=== PATIENT | male | born 1970 | race Caucasian/White ===

== ENCOUNTER 2025-05-05 15:28 | Outpatient (AMB) | payer OTHER, SELFPAY ==
--- NOTE | 2025-05-05 15:31 | MHC.PC.OV ---
Vital Signs 05/05/25 15:34 Height 5 ft 10.08 in Weight 207 lb BMI 29.6 BP 158/84 H Blood Pressure Location Rt brachial Position Sitting Respiration 14 Pulse 62 Pulse Source Pulse Oximeter Temp 97.7 F Temp Source Temporal Artery Scan Pulse Oximetry (%) 97 Oxygen Delivery Method Room Air Intake Visit Reasons: Office visit, New patient - see comments Medical Services Manager Required: No Accompanied by: Self / Same As Patient Allergies No Known Allergies (No Known Allergies*) Allergy (Unverified 05/05/25 15:32) Tobacco use date assessed: 05/05/25 Dental Screening Dental Screen Date: 05/05/25 Did you have a dental visit in the last 12 months?: Yes Did you have a dental problem in the last 6 months where you did not have access to dental care?: No Was dental information given to patient?: Patient has dentist HPI HPI Comments History of Present Illness Details History of Present Illness - The patient is a 54 year old individual presenting to [facility] care and for evaluation of urinary symptoms. - The patient reports that for the last 4-5 months, the patient's urine has been foamy and has had a strong ammonia-like odor. - The patient has not had health insurance for approximately 3 years and has not had recent lab work. - The patient's maintenance medications, which have been taken for about 20 years, include metoprolol 100 mg, trazodone for sleep, and an inhaler. - The patient also reports a recent episode of erectile dysfunction during a stressful situation and requests a prescription for Viagra 100 mg, noting the last prescription was filled about 3 years ago. - The patient reports daily alcohol consumption, has a history of heavy drinking, and has previously attended rehabilitation. - The patient also smokes 6-7 cigarettes daily, which is a reduction from a previous habit of 1.5 packs per day. - For health maintenance, the patient's last colon cancer screening was a Cologuard test at age 41 and has declined flu shots. - The patient reports significant life stress after moving from [place] to care for an ill mother. Social History - Alcohol Use: The patient reports drinking alcohol daily, typically a couple of drinks after getting home from work. - The patient occasionally drinks in the morning on days off and sometimes drinks alone. - The patient reports having been a very heavy drinker in the past but has cut down significantly and has a history of attending rehab. - Tobacco Use: The patient currently smokes 6-7 cigarettes per day, having cut back from a pack and a half per day over the last two years. - Employment: The patient works in a factory making - Housing and Family: The patient recently relocated from [place] to care for an ill mother and is currently living with her, which is a significant source of stress. - Exercise: The patient reports being physically active at work all day but does not engage in dedicated exercise. Results - No diagnostic results were reviewed during the visit. [facility] Medical History (Updated 05/05/25 @ 16:07 by Daniel Reynolds MD) Hyperlipidemia Family History (Updated 05/05/25 @ 15:43 by ROMAN Lehman) Father No problems noted. Mother No problems noted. Social History (Updated 05/05/25 @ 15:44 by ROMAN Lehman) Housing: House Alcohol intake: current Alcohol intake frequency: 0-2 drinks per day Patient Tobacco Use Status: Current everyday Tobacco user Cigarettes Per Day: 8 service: No Current occupational status: employed Cognitive needs: No Hearing needs: No Vision needs: Yes (reading glasses) Questionnaire PHQ-9 Over the last 2 weeks, how often have you been bothered by any of the following problems? 1. Little interest or pleasure in doing things: not at all 2. Feeling down, depressed, or hopeless: not at all 3. Trouble falling or staying asleep, or sleeping too much: not at all 4. Feeling tired or having little energy: not at all 5. Poor appetite or overeating: not at all 6. Feeling bad about yourself - or that you are a failure or have let yourself or your family down: not at all 7. Trouble concentrating on things, such as reading the newspaper or watching television: not at all 8. Moving or speaking so slowly that other people could have noticed. Or the opposite - being so fidgety or restless that you have been moving around a lot more than usual: not at all 9. Thoughts that you would be better off or of hurting yourself in some way: not at all Total score: 0 Source: Developed by Drs. Darshan Turner, Tahmina Muir, New Aviles and colleagues, with an educational jer from [employer]. Thrive Questionnaire Date Thrive assessed: 05/05/25 I am a: Patient What is your living situation today?: I have a steady place to live Within the past 12 months, did the food you bought not last and you didn't have the money to get more?: Never true Within the past 12 months, did you worry whether your food would run out before you got money to buy more?: Never true Do you have trouble paying for medicines?: No Do you have trouble getting transportation to medical appointments?: No Do you have trouble paying your heating and electricity bill?: No Do you have trouble taking care of your child, family member or friend?: No Do you have trouble with day-to-day activities such as bathing, preparing meals, shopping, managing finances, etc.?: No Are you currently unemployed and looking for a job?: No Are you interested in more education?: No Please select the resources that you would like help with: None THRIVE Score: 0 AUDIT C Alcohol Use Questionnaire (AUDIT-C) 1. How often do you have a drink containing alcohol?: 4 or more times a week 2. How many drinks containing alcohol do you have on a typical day when you are drinking?: 1 or 2 3. How often do you have six or more drinks on one occasion?: Never Total Score: 4 BLAINE-7 AMB Questionnaire BLAINE-7 Date BLAINE - 7 assessed: 05/05/25 Feeling nervous, anxious, or on edge: 0 = Not at all Not being able to stop or control worryin = Not at all Worrying too much about different things: 0 = Not at all Trouble relaxin = Not at all Being so restless that it is hard to sit still: 0 = Not at all Becoming easily annoyed or irritable: 0 = Not at all Feeling afraid as if something awful might happen: 0 = Not at all Total BLAINE-7 score (0-4 normal; 5-9 mild; 10-14 moderate; 15-21 severe): 0 Source: Developed by Drs. Darshan Turner, Tahmina Muir, [place] and colleagues, with an educational jer from [employer]. Review of Systems Narrative Review of Systems - Genitourinary: Reports foamy urine and urine with a strong ammonia-like odor for the last 4-5 months. - Reports recent erectile dysfunction. - Psychiatric: Reports a high level of stress related to living situation and caregiving responsibilities. - Constitutional: Denies symptoms of sickness, reports feeling - Neurological: Reports taking trazodone for sleep. - All other systems were reviewed and are negative. Physical exam (Primary Care) Vital Signs: Last Vital Signs Temp 97.7 F 05/05/25 15:34 Pulse 62 05/05/25 15:34 Resp 14 05/05/25 15:34 BP 158/84 H 05/05/25 15:34 Pulse Ox 97 05/05/25 15:34 Oxygen Delivery Method Room Air 05/05/25 15:34 BMI result Body Mass Index 29.6 Tobacco/Smoking Status: Tobacco use Status Tobacco use date assessed 05/05/25 05/05/25 15:33 Patient Tobacco Use Status Current everyday Tobacco 05/05/25 15:44 PHQ-9: PHQ-9 Score PHQ-9: Total score 0 05/05/25 15:33 Thrive Assessment: Date of Thrive Assessment Date Thrive assessed 05/05/25 05/05/25 15:33 Narrative Physical Exam General: Cooperative and healthy appearing Nutritional Appearance: Well nourished Orientation/consciousness: Patient oriented x3 Limitations: No limitations Head: Normal to inspection General: Appearance normal, both eyes and all related structures Neck: Normal visual inspection Chest: Normal palpation of entire chest wall Respiratory: Normal respiratory effort Neurology: Patient oriented x3 Office Procedures Flu Questionnaire Does the patient have a severe egg allergy?: No Does the patient have severe life threatening allergies?: No Does the patient have a fever or illness today?: No Has the patient ever had Guillain-Marshall Syndrome?: No Has the patient ever had any past reaction to a flu shot?: No Immunizations Fluarix [id number] (PF) 45 mcg (15 mcg x 3)/0.5 mL IM syringe Performing Provider: Daniel Reynolds MD [facility] Documented (not given) by: ROMAN Lehman on 05/05/25 15:44 Reason Not Given: Patient Refused Coding Level of Care Code Complex visit Add On G2211 Diagnoses Hyperlipidemia E78.5 Assessment & Plan Assessment & Plan (1) Hyperlipidemia: Code(s): E78.5 - Hyperlipidemia, unspecified Category: Medical Plan Plan - Labs: Will order comprehensive blood work and a urinalysis to evaluate for potential liver issues secondary to alcohol use and to assess overall health. - Medications: Will send a prescription for Viagra 100 mg to the patient's pharmacy. - Will refill maintenance medications (metoprolol, trazodone) when the patient is ready. - Health Maintenance: Will order a Cologuard test for colon cancer screening, to be sent to the patient's home. - Counseling: Advised the patient to reduce alcohol consumption, with a goal of abstinence for a few months. - Provided initial strategies for reduction, including abstaining from daytime drinking and drinking alone. - Encouraged incorporating dedicated exercise and healthy eating habits. - Follow-up: Patient to follow up after lab work is completed to review results. Discussion Notes I discussed with the patient that the presenting urinary symptoms, specifically foamy urine with an ammonia-like odor, could be indicative of liver issues, particularly given the patient's history of alcohol consumption. I explained the importance of obtaining comprehensive blood work and a urinalysis to get a clear picture of what is going on with the liver. I educated the patient that with alcoholic liver disease, symptoms often do not manifest until significant damage has occurred, underscoring the need for proactive assessment. We discussed the patient's high stress levels related to caregiving responsibilities and the recent episode of erectile dysfunction. I agreed to prescribe Viagra to address this concern. I acknowledged the patient's self-awareness regarding alcohol overuse and counseled on harm reduction strategies, such as avoiding daytime drinking and drinking alone, with the ultimate recommendation of abstaining for a few months. We also agreed on proceeding with a Cologuard test for colon cancer screening, and I provided instructions on where to go for the lab work. Patient Instructions - Please go to the [facility] lab to have your blood drawn and to provide a urine sample. - You should not eat or drink anything before you go (fasting). - A prescription for Viagra has been sent to [facility] pharmacy. - Please contact us when you need refills for your other medications. - A Cologuard kit for colon cancer screening will be sent to your home. - Please follow the instructions in the kit to provide a sample and mail it back. - It is strongly recommended to reduce your alcohol consumption. - Try to avoid drinking during the daytime and when you are by yourself. - Try to incorporate regular exercise and a healthy diet into your daily routine. Orders: Orders Influenza [id number] Immunization Today Z23 - Encounter for immunization Complete Blood Count no Diff Today E78.5 - Hyperlipidemia, unspecified Lipid Panel Today E78.5 - Hyperlipidemia, unspecified UA and rflx microscopic Today E78.5 - Hyperlipidemia, unspecified Basic Metabolic Panel Today E78.5 - Hyperlipidemia, unspecified Liver Panel Today E78.5 - Hyperlipidemia, unspecified Thyroid Stimulating Hormone Today E78.5 - Hyperlipidemia, unspecified Prostate Specific Antigen Scr Today E78.5 - Hyperlipidemia, unspecified Hemoglobin A1c Today E78.5 - Hyperlipidemia, unspecified Referrals Cologuard Test Z12.11 - Encounter for screening for malignant neoplasm of colon, Z12.12 - Encounter for screening for malignant neoplasm of rectum Medications: New albuterol sulfate 90 mcg/actuation (Ventolin HFA) 2 puffs inhalation Q6H PRN 6.7 grams 0RF shortness of breath or wheezing metoprolol succinate ER 100 mg PO DAILY 90 tabs 1RF sildenafil administer 30 minutes to 4 hours before activity 100 mg PO DAILY 7 tabs 0RF
[2025-05-05 15:34] VITALS: BP 158/84; PULSE 62; RESP 14; TEMP 36.5; O2SAT 97; BMI 29.6
--- OUTSIDE RECORDS SUMMARY | 2025-05-05 20:03 | XMS_ITS | Clinical Summary ---
Author Organization [facility] Address [address] [place] [address] Care Team Providers Care Cotton Inspector Name Role Phone Unavailable Primary Care Provider Unavailabl e Social History Tobacco Use Types Packs/Day Years Used Date Smoking Tobacco: Never Assessed Sex and Gender Information Value Date Recorded Sex Assigned at Not on file Legal Sex Male 12:37 AM EST Gender Identity Not on file Sexual Orientation Not on file Plan of Treatment Health Maintenance Due Date Last Done Comments DTaP,Tdap,and Td Vaccines (1 - Tdap) 08/17/1990 Hepatitis B Vaccines (1 of 3 - 19+ 3-dose series) 08/17/1990 Pneumococcal Vaccine: 50+ Ye ars (1 of 1 - PCV) 08/17/2021 Zoster Vaccines (1 of 2) 08/17/2021 Depression Screening 06/12/2024 COVID-19 Vaccine (1 - 2024-2 6 season) 2025 Influenza Vaccine (#1) 2025 RSV Immunization Adult Patie nts (1 - 1-dose 75+ series) 08/17/2046 HIB Vaccines Aged Out No longer eligi ble based on patient's age to complete this topic HPV Vaccines Aged Out No longer eligi ble based on patient's age to complete this topic Hepatitis A Vaccines Aged Out No long er eligible based on patient's age to complete this topic IPV Vaccines Aged Out No longer eligi ble based on patient's age to complete this topic MMR Vaccines Aged Out No longer eligi ble based on patient's age to complete this topic Meningococcal ACWY Vaccine Aged Out N o longer eligible based on patient's age to complete this topic Meningococcal B Vaccine Aged Out No l onger eligible based on patient's age to complete this topic RSV Immunization Patients Un xander 20 months Aged Out No longer eligible b ased on patient's age to complete this topic Varicella Vaccines Aged Out No longer eligible based on patient's age to complete this topic
--- OUTSIDE RECORDS SUMMARY | 2025-05-05 20:03 | XMS_ITS | Clinical Summary ---
Author Organization [facility] Address [address] [place] [address] Care Team Providers Care Rental Management Trainee Name Role Phone Unavailable Primary Care Provider Unavailabl e Medications Medication Sig Dispensed Refills Start Date End Date Status PROAIR HFA 108 (90 BASE) MCG/ACT inhaler Take 108 mcg by mouth every 4 (four) hours as needed. 5 03/29/2016 Active Loratadine (CLARITIN PO) Take by mouth. 0 Active Social History Tobacco Use Types Packs/Day Years Used Date Smoking Tobacco: Every Day Cigarettes 0.5 Alcohol Use Standard Drinks/Week Comments Yes 4 (1 standard drink = 0.6 oz pure alcohol) at least one beer and maybe 2-3 mixed drinks Sex and Gender Information Value Date Recorded Sex Assigned at Not on file Gender Identity Not on file Sexual Orientation Not on file Last Filed Vital Signs Vital Sign Reading Time Taken Comments Blood Pressure 159/101 05/25/2016 1:16 PM EST Pulse 72 05/25/2016 1:16 PM EST Temperature 36.9 C (98.4 F) 05/25/2016 1:16 PM EST Respiratory Rate 18 05/25/2016 1:16 PM EST Oxygen Saturation 98% 05/25/2016 1:16 PM EST Inhaled Oxygen Concentration - - Weight 86.2 kg (190 lb) 05/25/2016 12:32 PM EST Height - - Body Mass Index - - Plan of Treatment Not on file [address] [address]
== END 2025-05-05 16:20 | disposition home or self-care (01) ==
LOC: HO.HMCSH 15:28
PROVIDERS: PCP Internal Medicine; Visit Provider Internal Medicine
DX: Z23 Encounter for immunization (principal); E78.5 Hyperlipidemia, unspecified

== ENCOUNTER → 2025-05-05 15:28 | Outpatient (BNVA) | payer OTHER, SELFPAY | PROVIDERS: PCP Internal Medicine; Visit Provider Internal Medicine | DX: F17.210 Nicotine dependence, cigarettes, uncomplicated (principal); F10.90 Alcohol use, unspecified, uncomplicated; E78.5 Hyperlipidemia, unspecified; Z28.21 Immunization not carried out because of patient refusal; Z79.899 Other long term (current) drug therapy | CPT/HCPCS: 90471; 96127 ==

== ENCOUNTER 2025-05-19 11:24 | Outpatient (REF) | payer OTHER, SELFPAY ==
[2025-05-19 13:43] LABS: Appearance Urine Clear; Glucose Urine UA Negative (Negative); PH 6.0 (5.0-9.0); Specific Gravity - Urine 1.020 (1.005-1.025); UMIC TRIGGER UA YES
[2025-05-19 13:52] LABS: Hematocrit 45.7 % (42.0-52.0); Hemoglobin 15.8 g/dl (14.0-18.0); Mean Corpuscular HGB Conc 34.6 g/dl (31.0-36.0); Mean Corpuscular Hemoglobin 34.6 pg (27.0-33.0); Mean Corpuscular Volume 100.0 fL (80.0-98.0); NRBC Abs Auto 0.000 X10*3/uL (0.0-0.012); NRBC Pct Auto 0.0 /100WBC (0.0-0.2); Platelet Count 212 X10*3/uL (160-400); Red Blood Count 4.57 X10*6/uL (4.60-5.80); White Blood Count 7.8 X10*3/uL (4.8-10.8)
[2025-05-19 16:50] LABS: Alanine Aminotransferase 71 U/L (0-40); Albumin Level 4.7 g/dL (3.5-5.0); Alkaline Phosphatase 64 U/L (39-117); Anion Gap 12 (12-20); Aspartate Amino Transferase 53 U/L (5-37); Calcium 8.9 mg/dL (8.4-10.2); Carbon Dioxide 27 mmol/L (22-29); Chloride 104 mmol/L (96-108); Cholesterol 207 mg/dL (<200); Estimated Glomerular Filt Rate > 60; HDL Cholesterol 49 mg/dL (>40); Potassium 4.2 mmol/L (3.3-5.1); Sodium 139 mmol/L (135-145); Total Protein 7.2 g/dL (6.5-8.0); Triglycerides 112 mg/dL (<150)
[2025-05-19 16:57] LABS: Thyroid Stimulating Hormone 1.33 uIU/mL (0.32-4.0)
[2025-05-19 17:01] LABS: Blood Urea Nitrogen 7 mg/dL (9-16)
== END 2025-05-19 11:25 | disposition home or self-care (01) ==
LOC: HO.HMGCLDS 11:24
PROVIDERS: PCP Internal Medicine; Visit Provider Internal Medicine
DX: Z12.5 Encounter for screening for malignant neoplasm of prostate (principal); Z13.1 Encounter for screening for diabetes mellitus; E78.5 Hyperlipidemia, unspecified
CPT/HCPCS: 36415; 80048; 80061; 80076; 81001; 83036; 84153; 84443; 85027